=== PATIENT | male | born 1970 | race Caucasian/White ===

== ENCOUNTER 2017-09-12 06:55 | Emergency (ER) | payer OTHER ==
[~2017-09-12] VITALS: Ht 190.5 cm; Wt 96.3 kg
[~2017-09-12 06:55] MED LIST: OXYC-307 PO
[2017-09-12 06:57] VITALS: BP 128/82
[2017-09-12] MEDS ORDERED: PROPARACAINE OPHTH 0.5%, 15ML ONE (07:08)
[2017-09-12] MEDS ORDERED: FLUORESCEIN OPHTHALMIC 1 MG STRIP EACHEYE ONE (07:30)
[2017-09-12] MEDS ORDERED: PROPARACAINE OPHTH 0.5%, 15ML EACHEYE ONE (07:30)
== END 2017-09-12 09:02 | disposition home or self-care (01) ==
LOC: ED 07:30
DX: T15.01XA Foreign body in cornea, right eye, initial encounter (principal); X58.XXXA Exposure to other specified factors, initial encounter; Y93.H2 Activity, gardening and landscaping; Y92.89 Other specified places as the place of occurrence of the external cause; Y99.8 Other external cause status
CPT/HCPCS: 65220; 99284

== ENCOUNTER 2018-03-24 06:20 | Day surgery (SDC) | payer OTHER ==
[~2018-03-24] VITALS: Ht 190.5 cm; Wt 92.3 kg
[2018-03-24] MEDS ORDERED: BUPIVACAINE/PF-EPI 0.5% 1:200K ONE (06:41)
[2018-03-24] MEDS ORDERED: LACTATED RINGERS 1,000 ML IV SCH (07:11)
[2018-03-24 07:35] VITALS: BP 125/80
[2018-03-24] MEDS ORDERED: MIDAZOLAM 1 MG/ML, 2ML ONE (07:35)
[2018-03-24] MEDS ORDERED: NONE PER PT (07:35)
[2018-03-24 07:43] LABS: BASOPHILS # (AUTO) 0.01 x10^3/uL (0-0.1); BASOPHILS % (AUTO) 0 % (0-1); EOSINOPHILS # (AUTO) 0.23 x10^3/uL (0-0.4); EOSINOPHILS % (AUTO) 4 % (1-7); LYMPHOCYTES # (AUTO) 2.21 x10^3/uL (1-3.4); LYMPHOCYTES % (AUTO) 37 % (22-44); MD NO; MEAN CORPUSCULAR HEMOGLOBIN 31.6 pg (27.5-34.5); MEAN CORPUSCULAR HGB CONC 34.7 g/dL (33.2-36.2); MEAN CORPUSCULAR VOLUME 91.2 fL (81-97); MEAN PLATELET VOLUME 8.7 fL (7.4-10.4); MONOCYTES # (AUTO) 0.59 x10^3/uL (0.2-0.8); MONOCYTES % (AUTO) 10 % (2-9); NEUTROPHILS # (AUTO) 2.91 x10^3/uL (1.8-6.8); NEUTROPHILS % (AUTO) 49 % (42-75); PLATELET COUNT 285 x10^3/uL (130-400); RED BLOOD COUNT 4.95 x10^6/uL (4.38-5.82); RED CELL DISTRIBUTION WIDTH 13.4 % (9.4-14.8)
[2018-03-24 07:48] LABS: ALANINE AMINOTRANSFERASE 45 U/L (12-78); ALBUMIN 4.1 g/dL (3.4-5.0); ANION GAP 8 mmol/L (5-15); CHLORIDE 111 mmol/L (98-107); CREATININE 1.19 mg/dL (0.7-1.3)
[2018-03-24 07:49] LABS: INTERNATIONAL NORMALIZED RATIO 1.08 (0.93-1.1); PROTHROMBIN TIME 11.4 Seconds (9.6-11.5)
[2018-03-24 07:50] LABS: ALKALINE PHOSPHATASE 64 U/L (45-117); BILIRUBIN,TOTAL 0.8 mg/dL (0.2-1.0)
[2018-03-24] MEDS ORDERED: OXYcodone 5 MG/5 ML ORAL.SOL UDC PO PRN (09:30)
[2018-03-24] MEDS ORDERED: ONDANSETRON ODT 8 MG PO PRN (09:30)
[2018-03-24] MEDS ORDERED: ONDANSETRON 2MG/ML, 2ML IV PRN (09:30)
[2018-03-24] MEDS ORDERED: MEPERIDINE/PF 25MG/0.5ML IVPush PRN (09:30)
[2018-03-24] MEDS ORDERED: ACETAMINOPHEN 325 MG TABLET PO PRN (09:30)
[2018-03-24] MEDS ORDERED: HYDROmorphone 2 MG/ML, 1ML IVPush PRN (09:30)
[2018-03-24] MEDS ORDERED: ACETAMINOPHEN 650 MG/20.3 ML UDC ONE (09:47)
[2018-03-24] MEDS ORDERED: OXYcodone 5 MG/5 ML ORAL.SOL UDC ONE (09:47)
[2018-03-24] MEDS ORDERED: FENTANYL PF 100 MCG/2ML ONE (09:47)
[2018-03-24] MEDS: FENTANYL PF 100 MCG/2ML IV PRN ×2 (10:05→10:16)
[2018-03-24] MEDS ORDERED: PROPOFOL 10 MG/ML, 20ML ONE (11:06)
[2018-03-24] MEDS ORDERED: KETOROLAC 30 MG/1 ML ONE (11:06)
[2018-03-24] MEDS ORDERED: ONDANSETRON 2MG/ML, 2ML ONE (11:06)
[2018-03-24] MEDS ORDERED: DEXAMETHASONE 4 MG/ML, 1ML ONE (11:06)
[2018-03-24] MEDS ORDERED: CEFAZOLIN 1,000 MG ONE (11:06)
[2018-03-24] MEDS ORDERED: FENTANYL PF 250 MCG/5ML ONE (13:49)
== END 2018-03-24 11:50 | disposition home or self-care (01) ==
LOC: EDBD → OUT 06:20
PROVIDERS: ATTEND Surgery
DX: K42.0 Umbilical hernia with obstruction, without gangrene (principal); Z98.890 Other specified postprocedural states; Z79.899 Other long term (current) drug therapy; Z72.89 Other problems related to lifestyle
CPT/HCPCS: 36415; 49587; 80053; 85025; 85610; 93005; J0690; J1100; J1885; J2250; J2405; J2704; J3010; J7120